=== PATIENT | female | born 1995 | race Caucasian/White ===

== ENCOUNTER 2016-09-19 21:36 | Emergency (ER) | payer OTHER ==
[2016-09-19 21:55] VITALS: BP 129/85; PULSE 59; RESP 16; TEMP 98.4; O2SAT 96
[2016-09-19] MEDS ORDERED: CEPHALEXIN 500MG PREPACK#4 BTL TAKEHOME ONE (22:08)
[2016-09-19] MEDS ORDERED: CEPHALEXIN 500 MG CAP PO ONE (22:08)
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
== END 2016-09-19 22:37 | disposition home or self-care (01) ==
DX: L03.113 Cellulitis of right upper limb (principal); V18.2XXA Unspecified pedal cyclist injured in noncollision transport accident in nontraffic accident, initial encounter